=== PATIENT | female | born 1995 | race Caucasian/White ===

== ENCOUNTER → 2017-10-18 10:22 | Outpatient (CLI) | payer BC, SELFPAY ==
[2017-10-22 10:18] LABS: V-Zoster IgG (Immunity) 523 index (Immune >165); V-Zoster Virus Acute IgM < 0.91 index (0.00-0.90)
== END ==
DX: L30.9 Dermatitis, unspecified (principal)
CPT/HCPCS: 36415; 86787

== ENCOUNTER 2018-03-14 16:40 | Inpatient (IN) | payer BC, SELFPAY ==
[2018-03-14 17:12] VITALS: BMI 31.3
[2018-03-14] MEDS: Lactated Ringers 1,000 ML 50 ML IV (17:45)
[2018-03-14 17:54] LABS: Hematocrit 33.2 % (37-47); Hemoglobin 11.1 g/dl (12.0-15.0); Mean Corp Hgb Conc 33.4 g/gl (32-36); Mean Corpuscular Hgb 31.2 pg (27.0-32.0); Mean Corpuscular Volume 93.3 fL (81-99); Mean Platelet Vol. 10.3 fl (6.2-12.0); Platelet Count 235 K/mm3 (150-450); RBC Distribution Width CV 13.4 % (11.6-14.6); Red Blood Count 3.56 M/mm3 (4.2-5.4); White Blood Count 10.1 K/mm3 (4.4-11.0)
[2018-03-14 18:22] LABS: Scan Indicated on CBC? Y/N NO
[2018-03-14] MEDS: miSOPROStol 25 MCG TABLET VAGINAL (18:25)
[2018-03-14] MEDS: 0.9% Normal Saline 100 ML IV.SOLN. INTRA-UTER (21:03)
--- NOTE | 2018-03-14 21:11 | PCM.HP.OB ---
History Date of Admission: 03/14/18 Final STEPHANIE: 03/22/18 Gestational age: 38 Weeks and 6 Days History of this : This is a 22 year-old, 2 para 0010 at 38-6/7 weeks for cervical ripening for 39-week induction tomorrow due to polyhydramnios. Patient has been diagnosed with polyhydramnios that is idiopathic in nature. Estimated weight is 86 percentile. Amniotic fluid volume at last check was 28 cm. She denies any vaginal bleeding or leaking of fluid. She has had good movement. She has had some irregular contractions and back pain. Allergies No Known Allergies Allergy (Unverified 03/14/18 17:14) Home Medications: Home Medications Ferrous Sulfate [Slow Fe] 142 mg PO DAILY 03/14/18 Vits [Prenatabs FA] 1 tablet PO DAILY 03/14/18 Smoking Status: Never smoker Alcohol: None Number of Fetus(es): 1 Heart Tracing: normal baseline, moderate variability, some accelerations. No repetitive decelerations. TOCO Analysis: Contractions every 3-4 min History Past Pregnancies: Past Pregnancies Delivery Date Name GA/Weeks Outcome Route Weight Infant Gender Labor Length Anesthesia Delivery Location Provider FOB Expected Infant Delivery Method: Spontaneous Vaginal Review of Systems Constitutional: Denies: Chills, Fever Cardiovascular: Denies: Chest Pain Respiratory: Denies: Cough, Shortness of Breath Skin: Denies: Rash Physical Exam General: Alert, Cooperative, No apparent distress Cardiovascular: Regular rate Lungs: Normal air movement Abdomen: Soft, Non-Distended, Gravid, - - large for gest age abdomen c/w polyhydramios Extremities:: Other - 1+ edema FRAME FIXER: Normal external genitalia Estimated gestational size: Large for gestational age Presentation: Cephalic Cervix Dilation (cm): 1 Assessment/Plan This is a 22 year-old, 2 para 0010 at 38-6/7 weeks for cervical ripening for polyhydramnios induction of labor at 39 weeks. Benefits and alternatives to induction been discussed with patient her questions were answered to her satisfaction she desires to proceed. Had 1 dose of Cytotec and cervix is now dilated to 1 cm. We will proceed with Pitocin and Thurman ripening. Estimated weight is less than 5000 g by ultrasound and clinically and pelvis is clinically adequate to expect vaginal delivery. Patient may have epidural, Nubain or nitrous as needed. May have Dilaudid until in active labor. Initiate group B strep prophylaxis when she is in active labor. Procedure note: Thurman catheter was placed over the stylette into the cervical loss in the usual sterile fashion. The balloon was inflated to 30 cc and placement over the internal loss was confirmed. Patient tolerated the procedure well.
[2018-03-15] MEDS: 0.9% Saline Lock 10 ML Syringe IV ×3 (00:35→16:37)
[2018-03-15] MEDS: Oxytocin 30 units/NS 500 ml 30 UNITS/500 ML IV.SOLN IV (01:52)
[2018-03-15] MEDS: Lactated Ringers 1,000 ML 50 ML IV ×3 (03:11→12:54)
[2018-03-15] MEDS: fentaNYL-bupivacaine (epidural) 100 ML BAG EPIDURAL ×3 (03:25→12:55)
--- NOTE | 2018-03-15 10:12 | PCM.PN.BLA ---
Progress Note Pain well controlled w/ epidural FHTs- normal baseline, moderate variability, no recurrent decelerations, occas. accels tocos- ctxs q2-4 min cervix 6/100/-2, AROM w/ return of large amount of clear fluid cont. expectant management for vaginal delivery
[2018-03-15] MEDS: Oxytocin 30 units/NS 500 ml 30 UNITS/500 ML IV.SOLN 334 UNITS IV (13:50)
--- NOTE | 2018-03-15 14:11 | PCM.OB.VAG ---
Vaginal Delivery Maternal Presentation: Medically Indicated Induction Method of Induction: Pitocin, Thurman Bulb, Amniotomy, Cytotec Medical Reason for Induction: - - Polyhydramnios Amniotic Membrane Rupture Type: Artificial Amniotic Fluid Description: Clear - converted to light MSF at delivery Final STEPHANIE: 03/22/18 Final STEPHANIE Source: US <20 weeks Gestational age: 39 Weeks and 0 Days Date of Procedure: 03/15/18 Pre-Operative Diagnosis: polyhydramnios, labor Post-Operative Diagnosis: same Surgery/ Procedure Performed: Spontaneous Vaginal Delivery Type of Anesthesia: Epidural Description of Procedure: A vigorous female was delivered PAUL over a small second-degree perineal laceration. The remainder the infant was delivered with maternal pushing and gentle traction only in less than 15 seconds. The Pitocin infusion was initiated for active management of the third stage. The cord was clamped and cut after 1 minute. The was attended to by the waiting nursing staff. The placenta was delivered spontaneously and intact. The cervix and vagina were intact. The second-degree perineal laceration was repaired with 3-0 Vicryl suture in a running standard fashion. Sponge and needle counts were correct. A vaginal sweep was completed by me. Presentation: PAUL Placental Delivery Description: Spontaneous Placenta Disposition: [facility] Cord Vessel Description: 3 Vessels Cord Entanglement: None Drain: Thurman to straight drain Estimated Blood Loss: 350 A gender: Female (1 minute): 3 (5 minute): 9 Episiotomy Description: None Laceration: 2nd degree - perineal Medications given after delivery: IV Pitocin Complications: None
[2018-03-15] MEDS: Oxytocin 30 units/NS 500 ml 30 UNITS/500 ML IV.SOLN 167 UNITS IV (14:20)
[2018-03-15 21:00] VITALS: BP 119/62; PULSE 100; RESP 16; TEMP 36.3
[2018-03-16 00:30] VITALS: BP 102/52; PULSE 83; RESP 16; TEMP 36.2
[2018-03-16 06:00] VITALS: BP 105/55; PULSE 96; RESP 16; TEMP 36
[2018-03-16] MEDS: Senna/Docusate Sodium 1 Tablet PO (07:43)
[2018-03-16 08:00] VITALS: BP 102/54; PULSE 89; RESP 16; TEMP 36.1; O2SAT 98
[2018-03-16 11:55] VITALS: BP 101/57; PULSE 96; RESP 18; TEMP 36.3; O2SAT 98
[2018-03-16 15:50] VITALS: BP 107/56; PULSE 97; RESP 14; TEMP 36.4; O2SAT 98
[2018-03-16 21:00] VITALS: BP 113/58; PULSE 95; RESP 16; TEMP 36.1
[2018-03-17 01:45] VITALS: BP 104/59; PULSE 78; RESP 16; TEMP 36
--- NOTE | 2018-03-17 08:16 | DCINST_ITS ---
Discharge Diet: No Restrictions Discharge Activity: Return to Normal Activity, May not drive while taking narcotic pain medications., May Shower May resume sexual activity in: 4-6 weeks Additional Activity Instructions:: Nothing in the vagina for 4-6 weeks. You may return to work/school in 6 weeks. Call your doctor if your incision/area has: Continuous Slow Oozing, Sudden Increased Bleeding, Increased Pain/ Swelling, Increased Redness, Foul Smelling Discharge Additional Instructions: If you experience any of the following, contact your healthcare provider. * Bleeding that soaks a pad every hour for 2 hours * Fever 100.4 or higher * Unrelieved incision or abdominal pain * Swelling, redness, discharge or bleeding from your incision or episiotomy site * Your incision begins to separate * Problems urinating (including inability to urinate or burning while urinating). * Visual changes * Severe headache * Flu-like symptoms * Pain or redness in one of both of your breasts * Pain, warmth, tenderness or swelling in your legs, especially the calf area * Frequent nausea and vomiting * Symptoms of depression or anxiety If you experience any of the following, call 911 or go to the nearest Emergency Room. * Chest pain * Problems breathing * Seizure activity * Partial or complete paralysis of a body part, slurred speech, weakness or drooping of the face, or a sudden inability to walk or hold your balance Allergies/Adverse Reactions: Allergies No Known Allergies Allergy (Unverified 03/14/18 17:14) Medications to take at Discharge Ferrous Sulfate [Slow Fe] 142 mg PO DAILY 03/14/18 Vits [Prenatabs FA ] 1 tablet PO DAILY 03/14/18 Ibuprofen [Motrin] 800 mg PO TID PRN PRN #60 tablet 03/17/18 The following prescriptions were given: Ibuprofen [Motrin] 800 mg PO TID PRN PRN #60 tablet PRN Reason: Pain Please Follow Up With: Marta Mccray MD - [phone] When: Call to make an appointment with your provider's office in 1-2 and 6 weeks. Primary Care Physician: Care Physician,No Primary [Primary Care Provider] - Test Results: Test results from this visit will be discussed in further detail at your follow- up appointment, if applicable.
--- NOTE | 2018-03-17 08:27 | PCM.PN.OB ---
Subjective: pain well controlled, average lochia. Sore nipples. Note- did well yesterday, I rounded but note entered on wrong patient yesterday - Physical Exam General: Alert, Cooperative, No apparent distress Vital Signs Temp Pulse Resp BP Pulse Ox 96.8 F L 78 16 104/59 L 98 03/17/18 01:45 03/17/18 01:45 03/17/18 01:45 03/17/18 01:45 03/16/18 15:50 Oxygen Delivery Method Room Air Weight: 77.6 kg Body Mass Index (BMI) 31.3 Intake and Output for Last 24 Hours 03/15/18 03/16/18 03/17/18 23:59 23:59 23:59 Intake Total 5 / 5 Output Total 1075 / 1075 Balance 1000 / 1000 Medical Necessity - Tobacco Use Smoking Status: Never smoker Assessment/Plan PPD#2 doing well ready for d/c yesterday was doing well and had routine care, was working on
[2018-03-17 08:29] VITALS: BP 116/55; PULSE 71; RESP 16; TEMP 35.6; O2SAT 99
[2018-03-17 12:06] VITALS: BP 99/61; PULSE 78; RESP 16; TEMP 35.8; O2SAT 98
== END 2018-03-17 12:30 | disposition home or self-care (01) | DRG 807 ==
PROVIDERS: Admitting Provider Obstetrics & Gynecology; Referring Provider Obstetrics & Gynecology; Visit Provider Obstetrics & Gynecology
DX: O40.3XX0 Polyhydramnios, third trimester, not applicable or unspecified (principal); O36.63X0 Maternal care for excessive fetal growth, third trimester, not applicable or unspecified; O77.0 Labor and delivery complicated by meconium in amniotic fluid; O70.1 Second degree perineal laceration during delivery; Z3A.39 39 weeks gestation of pregnancy; Z37.0 Single live birth
CPT/HCPCS: 59025; 59050; 85027; 86850; 86900; 99218; J7120; A4216; G0378

== ENCOUNTER → 2018-10-14 10:28 | Outpatient (CLI) | payer BC, SELFPAY ==
[2018-10-14 09:47] VITALS: BMI 31.3
[2018-10-14 10:59] LABS: Absolute Lymphocyte Count 1.11 X10^3/uL (0.83-4.51); Absolute Neutrophil Count 6.1 X10^3/uL (2.0-7.7); Basophil# 0.02 X10^3/uL; Basophil% 0.3 % (0-1); Hemoglobin 13.9 g/dL (12.0-15.0); Lymphocyte # 1.11 X10^3/ul (4.0); Lymphocyte % 14.5 % (19-41); Mean Corp Hgb Conc 34.8 g/dL (32-36); Mean Corpuscular Volume 89.1 fL (81-99); Mean Platelet Vol. 9.6 fl (6.2-12.0); Monocyte# 0.35 X10^3/uL; Monocyte% 4.6 % (0-10); NRBC Flagged by Analyzer 0 % (0-5); Neutrophil # 6.13 X10^3/uL (2.7-7.7); Neutrophil % 79.9 % (47-70); Platelet Count 273 K/mm3 (150-450); RBC Distribution Width CV 12.2 % (11.6-14.6); RBC Distribution Width SD 40.2 fl (35.1-43.9); Red Blood Count 4.49 M/mm3 (4.2-5.4); White Blood Count 7.7 K/mm3 (4.4-11.0)
[2018-10-14 12:05] LABS: HIV - WCH Non-Reactive (Nonreactive); Hepatitis B Surface Antigen Non-Reactive (Nonreactive); Rubella IgG 99.1 IU/mL
[2018-10-14 14:52] LABS: Chlamydia Trachomatis by PCR Negative (Negative); Neisserai gonorrhoeae by PCR Negative (Negative); Probe Check PASS; Sample Adequacy Control PASS; Specimen Processing Control PASS
[2018-10-17 01:38] LABS: Rapid Plasmin Reagin (RPR) NONREACTIVE (NONREACTIVE)
[2018-10-17 12:20] LABS: HPV Reflexed? NOT INDICATED
== END ==
PROVIDERS: Referring Provider Obstetrics & Gynecology; Visit Provider Obstetrics & Gynecology
DX: Z34.90 Encounter for supervision of normal pregnancy, unspecified, unspecified trimester (principal); Z12.4 Encounter for screening for malignant neoplasm of cervix
CPT/HCPCS: 36415; 85025; 86592; 86703; 86762; 86850; 86900; 86901; 87086; 87088; 87340; 87491; 87591; 87624; 88175; G0145

== ENCOUNTER → 2019-02-17 16:01 | Outpatient (CLI) | payer BC, SELFPAY ==
[2019-02-17 15:29] VITALS: BMI 31.3
[2019-02-17 17:37] LABS: Absolute Neutrophil Count 7.4 X10^3/uL (2.0-7.7); Basophil# 0.03 X10^3/uL; Basophil% 0.3 % (0-1); Eosinophil# 0.04 X10^3/uL; Eosinophils% 0.4 % (0-5); Hematocrit 33.9 % (37-47); Hemoglobin 11.3 g/dL (12.0-15.0); Mean Corp Hgb Conc 33.3 g/dL (32-36); Mean Corpuscular Hgb 31.9 pg (27.0-32.0); Mean Corpuscular Volume 95.8 fL (81-99); Mean Platelet Vol. 10.1 fl (6.2-12.0); Monocyte# 0.45 X10^3/uL; Monocyte% 4.8 % (0-10); NRBC Flagged by Analyzer 0 % (0-5); Neutrophil # 7.36 X10^3/uL (2.7-7.7); Neutrophil % 78.9 % (47-70); Platelet Count 198 K/mm3 (150-450); RBC Distribution Width CV 12.6 % (11.6-14.6); RBC Distribution Width SD 44.4 fl (35.1-43.9); Red Blood Count 3.54 M/mm3 (4.2-5.4); White Blood Count 9.3 K/mm3 (4.4-11.0)
[2019-02-17 18:01] LABS: Glucose Challenge Gest 1H 50g 140 mg/dL (70-140)
== END ==
PROVIDERS: Referring Provider Obstetrics & Gynecology; Visit Provider Obstetrics & Gynecology
DX: Z34.92 Encounter for supervision of normal pregnancy, unspecified, second trimester (principal)
CPT/HCPCS: 36415; 82950; 85025

== ENCOUNTER → 2019-03-24 07:19 | Outpatient (CLI) | payer BC, SELFPAY ==
[2019-03-06 15:03] VITALS: BMI 31.3
[2019-03-24 08:17] LABS: Glucose GTT-Gestation. Fasting 88 mg/dL (<105)
[2019-03-24 09:13] LABS: Glucose GTT-Gestational 1 Hr 123 mg/dL (<190)
[2019-03-24 10:38] LABS: Glucose GTT-Gestational 2 Hr 88 mg/dL (<165)
[2019-03-24 11:26] LABS: Glucose GTT-Gestational 3 Hr 74 L (<145)
== END ==
PROVIDERS: Referring Provider Nurse Practitioner Women's Health; Visit Provider Nurse Practitioner Women's Health
DX: O99.810 Abnormal glucose complicating pregnancy (principal); Z3A.00 Weeks of gestation of pregnancy not specified
CPT/HCPCS: 36415; 82951; 82952

== ENCOUNTER → 2019-04-16 | Outpatient (CLI) | payer BC, SELFPAY ==
[2019-04-16 15:51] VITALS: BMI 31.3
== END | disposition home or self-care (01) ==
LOC: LABSPEC 17:02
PROVIDERS: Referring Provider Obstetrics & Gynecology; Visit Provider Obstetrics & Gynecology
DX: Z34.80 Encounter for supervision of other normal pregnancy, unspecified trimester (principal)
CPT/HCPCS: 87081

== ENCOUNTER → 2019-05-12 11:48 | Outpatient (CLI) | payer BC, SELFPAY ==
[2019-05-06 11:24] VITALS: BMI 31.3
--- NOTE | 2019-05-12 11:56 | US_ITS ---
STUDY: SECOND AND THIRD TRIMESTER OBSTETRICAL ULTRASOUND - LIMITED REASON FOR EXAM: Female, 23 years old WELL BEING LMP: August 11, 2018. PRIOR ULTRASOUND: None. TECHNIQUE: Transabdominal TECHNICAL QUALITY: Adequate. FINDINGS: There is a single intrauterine fetus. The fetus is in a cephalic presentation. There is demonstrated cardiac activity with a heart rate of 156 bpm. There is a normal amniotic fluid volume. The largest amniotic fluid pocket measures 11 cm. The amniotic fluid index (MANDI) is 30.5 cm. There is evidence of polyhydramnios. The placenta is fundal in location. There are Grade 1 placental changes. The cervix was not well seen due to the head positioning. BIOMETRY: BPD: 9.25 cm: 36 weeks, 5 days HC: 33.26 cm: 38 weeks, 0 days AC: 35.14 cm: 39 weeks, 1 days FL: 7.2 cm: 36 weeks, 6 days Age by LMP: 39 weeks, 1 days. STEPHANIE by LMP: May 18, 2019. age by current US: 37 weeks, 5 days. STEPHANIE by current US: May 28, 2019. Estimated weight: 3400 grams, +/- 496 grams, 44 percentile. US/OB Limited With Biometrics IMPRESSION: A single live intrauterine gestation with a mean gestational age of 37 weeks and 5 days. Polyhydramnios. Electronically Signed: Jose Miguel Parsons, at 13:18 EDT , Service support ,
== END ==
PROVIDERS: Referring Provider Obstetrics & Gynecology; Visit Provider Obstetrics & Gynecology
DX: O40.3XX0 Polyhydramnios, third trimester, not applicable or unspecified (principal); Z3A.37 37 weeks gestation of pregnancy
CPT/HCPCS: 76816

== ENCOUNTER 2019-05-18 05:55 | Outpatient (CLI) | payer BC, SELFPAY ==
[2019-05-12 13:49] VITALS: BMI 31.3
[2019-05-18 07:26] VITALS: BMI 31.0
[2019-05-18 07:33] VITALS: PULSE 101; O2SAT 81
[2019-05-18 07:34] VITALS: BP 104/54; TEMP 37.3
[2019-05-18 07:35] VITALS: PULSE 84; O2SAT 97
--- NOTE | 2019-05-18 07:54 | US_ITS ---
STUDY: OBSTETRICAL ULTRASOUND - BIOPHYSICAL PROFILE REASON FOR EXAM: Female, 23 years old WELL BEING LMP: August 11, 2018. PRIOR ULTRASOUND: Comparison is made with prior examination dated May 12, 2019. TECHNIQUE: Transabdominal TECHNICAL QUALITY: Adequate. FINDINGS: There is a single intrauterine fetus. The fetus is in a cephalic presentation. There is demonstrated cardiac activity with a heart rate of 150 bpm. There is a normal amniotic fluid volume. The largest amniotic fluid pocket measures 9.1 cm. The amniotic fluid index (MANDI) is 27.2 cm. There is evidence of polyhydramnios. The placenta is posterior in location and is not low lying. There are Grade 2 placental changes. Age by LMP: 40 weeks, 0 days. STEPHANIE by LMP: May 18, 2019. BIOPHYSICAL PROFILE: Breathing Movements (FBM): 2 Gross Body Movements (GBM): 2 Tone (FT): 2 Amniotic Fluid Volume (AFV): 2 TOTAL SCORE: 8 / 8 US/Biophysical Profile IMPRESSION: Normal biophysical profile of 88. Electronically Signed: Jose Miguel Parsons, at 10:23 EDT , Service support ,
--- NOTE | 2019-05-20 12:57 | OB.TRI.PN_ITS ---
Progress Notes Date of Service: 05/18/19 Progress Note: FHT: 130 Moderate variability reactive no decelerations category I tracing [place]: irregular Contractions nst secondary to polyhydramnios Multi Select Codes - Urinary/Genital Urinary/Genital CPT Codes: 67092-93 non-stress test Interp
--- NOTE | 2019-05-20 12:57 | OB.TRI.PN ---
Progress Notes Date of Service: 05/18/19 Progress Note: FHT: 130 Moderate variability reactive no decelerations category I tracing [place]: irregular Contractions nst secondary to polyhydramnios Multi Select Codes - Urinary/Genital Urinary/Genital CPT Codes: 09888-16 non-stress test Interp
== END 2019-05-18 10:15 | disposition home or self-care (01) ==
LOC: WPOUT 07:05 → WP 07:06
PROVIDERS: Referring Provider Obstetrics & Gynecology; Visit Provider Obstetrics & Gynecology
DX: O40.3XX0 Polyhydramnios, third trimester, not applicable or unspecified (principal); Z3A.40 40 weeks gestation of pregnancy
CPT/HCPCS: 59050; 76818; 99218; G0378

== ENCOUNTER 2019-05-20 07:00 | Inpatient (IN) | payer BC, SELFPAY ==
[2019-05-12 13:49] VITALS: BMI 31.3
[2019-05-20] VITALS (61 sets, daily range): BP systolic 80–132; BP diastolic 45–78; PULSE 73–163; TEMP 36.6–37.6; O2SAT 83–100; BMI 30.7
[2019-05-20] MEDS: Lactated Ringers 1,000 ML 50 ML IV (07:40)
[2019-05-20 07:52] LABS: Absolute Lymphocyte Count 1.25 X10^3/uL (0.83-4.51); Absolute Neutrophil Count 5.5 X10^3/uL (2.0-7.7); Basophil# 0.02 X10^3/uL; Basophil% 0.3 % (0-1); Eosinophil# 0.04 X10^3/uL; Eosinophils% 0.5 % (0-5); Hematocrit 33.5 % (37-47); Hemoglobin 11.3 g/dL (12.0-15.0); Lymphocyte # 1.25 X10^3/ul (4.0); Mean Corp Hgb Conc 33.7 g/dL (32-36); Mean Corpuscular Hgb 31.7 pg (27.0-32.0); Mean Corpuscular Volume 94.1 fL (81-99); Mean Platelet Vol. 9.9 fl (6.2-12.0); Monocyte# 0.47 X10^3/uL; Monocyte% 6.4 % (0-10); NRBC Flagged by Analyzer 0 % (0-5); Neutrophil % 74.7 % (47-70); Platelet Count 169 K/mm3 (150-450); RBC Distribution Width SD 44.8 fl (35.1-43.9); Red Blood Count 3.56 M/mm3 (4.2-5.4); White Blood Count 7.4 K/mm3 (4.4-11.0)
[2019-05-20] MEDS: miSOPROStol 25 MCG TABLET VAGINAL (08:10)
--- NOTE | 2019-05-20 08:45 | NURSING ---
pt lactose intolerant
--- NOTE | 2019-05-20 12:55 | HP.PCM_ITS ---
- Problem List (1) Abnormal glucose affecting Status: Acute Comment: 3 hr GTT normal (2) Family history of congenital heart defect Status: Acute Comment: dtr with ASD, patient declines echo and nt screening. (3) Large for gestational age fetus Status: Acute Comment: prev polyhydramnios. check growth scan (4) Polyhydramnios affecting Status: Acute Comment: weekly NST at 32 wk, growth US Q4 weeks (5) Status: Acute Qualifiers: Comment: Declines carrier, genetic and NTD reviewed us (6) Short interval between pregnancies complicating , antepartum Status: Acute Comment: 03/2018 (7) Supervision of other normal Status: Acute Comment: PRR STEPHANIE 05/18/19 boy Krishan PC Arina Spouse Jorge (8) Umbilical cord, marginal insertion Status: Acute Comment: 1cm from upper edge. repeat growth at 28-32 weeks History and Physical Date of Admission: 05/20/19 Intake Vital Signs 05/12/19 BMI 31.3 05/12/19 Height 5 ft 4 in 05/12/19 Weight: 169 lb 05/12/19 BMI 29.0 05/12/19 BP 108/70 Intake Visit Reasons: OB VISIT - PER SM Chief Complaint: est ob Stage Set Designer Required: No Is patient in pain?: No Allergies No Known Allergies Allergy (Verified 05/12/19 13:46) Medications Vits [Prenatabs FA ] 1 tab PO DAILY 03/14/18 [History Confirmed 05/12/19] Last Menstral Period: 08/11/18 Zika: Zika virus screening: Negative : No PFSH PFSH Medical History Supervision of other normal (Acute) Short interval between pregnancies complicating , antepartum (Acute) (Acute) Heart murmur (Acute) Surgical History No significant past surgical history (Acute) Social History (Updated 05/12/19 @ 14:[address] Kami Calderon MD) adopted: No household members: family housing: house number of children: 1 current occupational status: employed current occupation: [employer] current occupational exposures/hazards: No pets and animals: Yes history of recent travel: No sexually active: Yes Smoking Status: Never smoker second hand exposure: No alcohol intake: current Alcohol type: wine substance use type: does not use seatbelt use: always do you feel safe at home: Yes additional social history: Spouse: Jorge- director of [employer] Pregancy History 3 Elective abortions Hx Para 1 Spontaneous abortions 1 Hx # Term Pregnancies Ectopic pregnancies Hx # Pregnancies Multiple births # of living children 1 Past Pregnancies Del. Date Name GA/Weeks Outcome Route Bth Weight Infant Gen Labor Lgth Anesthesia Del Locatn Provider FOB 03/15/18 Arina 39 live - full term 7.9 Female [address] [facility] Dr[address] Mahendra Patel Delivery Date: 03/15/18 On 10/14/18 @ 09:[address] IoL d/t poly; HPI OB VISIT - PER SM: Details: JOVAN LANCASTER is a 23 year old who presents for routine OB visit. OB Visit STEPHANIE Calculator Estimated Delivery Date Method Current WG Current Estimate 05/18/19 LMP (Certain) 39w 1d Expected Delivery Route/Plan Labor Preferences- labor support person: Bentley pain management options preferred: epidural cut cord/dad catch: cord : maybe PP control planned: condoms discussed possible routes of delivery and associated risks: [] special requests: [] Specific Issue/Plans flu vaccine: given tdap vaccine: given rhogam: na LARC form signed: yes movement and labor precautions reviewed. Problem list reviewed and updated with the most current plan of care details and appropriate orders placed. Relevant counseling for the gestational age provided. Continue routine care and follow up unless otherwise noted in visit notes/problem list details Initial Weight: 133 lb Date EGA Weight BP Urine Prot Glucose FHR FuHt Pres Dilation Effaced St Visit Note 11/11/18 13w 1d 134 lb (+16 oz) 136/64 Negative Negative 155 no vb cramping 12/15/18 18w 0d 137 lb 4 oz (+4 lb 4 oz) 104/66 Negative Negative 143 No VB, LOF. Doing well 01/22/19 23w 3d 144 lb (+11 lb) 114/70 Negative Negative 145 no vb lof good fm struggling with anxiety. discussed placental finding - not oerly abnormal just recommend growt us in third trimester 02/17/19 27w 1d 148 lb (+15 lb) 124/76 Negative Negative 155 28 no vb lof good fm no reg ctx cbc gct, tdap next visit 03/06/19 29w 4d 154 lb 4 oz (+21 lb 4 oz) 119/71 Negative Negative 151 30 Good FM. No Vb, lof. Tdap given. 3hr GTT and repeat US ordered. 03/26/19 32w 3d 156 lb (+23 lb) Trace Negative 135 32 Breech SM- no vb lof good fm no regular ctx 04/03/19 33w 4d 158 lb 2 oz (+25 lb 2 oz) 121/75 Negative Negative 135 36 Breech SM- no vb lof good fm no reg ctx check growth scan due to measuring ahead and history of polyhydramnios with first 04/15/19 35w 2d 161 lb 2 oz (+28 lb 2 oz) 115/77 Negative Negative 141 37 Cephalic MH-no VB, LOF. Good FM. Told at [facility] US on 04/10 polyhydramnios. Will get report and call patient after discussing with ALEXANDREA. 04/16/19 35w 3d 161 lb (+28 lb) 108/68 Negative Negative 140 discussed delivery by 39-40 04/22/19 36w 2d 161 lb (+28 lb) 140 Cephalic no vb lof good fm no regular ctx 05/01/19 37w 4d 165 lb (+32 lb) 120/62 Negative Negative 140 Cephalic 1 0 -4 SM- no vb lof good fm no regular ctx 05/06/19 38w 2d 167 lb 2 oz (+34 lb 2 oz) 119/72 Negative Negative 140 SM- no vb lof good fm no reular ctx discussed growth scan and plan IOL 39-40 weeks 05/12/19 39w 1d 169 lb (+36 lb) 108/70 Negative Negative 140 Cephalic 1 0 SM- US done and reassuring. no vb lo f good fm no regular ctx. Notes Visit Date: 05/12/19 ??No visit notes to display Visit Date: 05/06/19 ??No visit notes to display Visit Date: 05/01/19 ??No visit notes to display Visit Date: 04/22/19 ??No visit notes to display Visit Date: 04/16/19 ??No visit notes to display Visit Date: 04/15/19 ??No visit notes to display Visit Date: 04/03/19 ??No visit notes to display Visit Date: 03/26/19 ??No visit notes to display Visit Date: 03/06/19 ??No visit notes to display Visit Date: 02/17/19 ??No visit notes to display Visit Date: 01/22/19 ??no vb lof good fm struggling with anxiety. discussed placental finding - not oerly abnormal just recommend growt us in third trimester ??Kami Calderon MD on 01/22/19 Visit Date: 12/15/18 ??No VB, LOF. Doing well ??Luz Mayfield NP-C on 12/15/18 Visit Date: 11/11/18 ??no vb cramping ??Kami Calderon MD on 11/11/18 [facility] First Trimester First Trimester: Desire for , Alcohol, Tobacco Cessation, Illicit/Recreational Drug/Substance Use, Intimate Partner Violence, Barriers to care, Unstable Housing, Communication Barriers, Environmental/Work Hazards, Anticipated Course of Care, Toxoplasmosis Precations, Use of Any medications, Sexual activity, Exercise, Dental Care, Sauna/Hot tub use, Seat Belt use, Childbirth classes/Hospital facilities, , Travel, Indications for US and Screening for Aneuploidy Second Trimester Second Trimester: Signs and Symptoms of Labor, Selecting a care provider, Reproductive Life Planning, Care Planning, Tobacco Cessation, Depression/Anxiety and Intimate Partner Violence Third Trimester Third Trimester: Pain Management Plans, Labor support person(s), Immediate Larc, Movement Monitoring and Infant Feeding Yes ; discussed Trial of Labor after Counseling or discussed Circumcision preference Diagnostics Diagnostics Diagnostics Gest Glucose Tolerance MG/DL 03/24/19 Glucose 1 Hr 50 gm 140 mg/dL (70-140) 02/17/19 Hgb 11.3 g/dL (12.0-15.0) L 02/17/19 Hct 33.9 % (37-47) L 02/17/19 Details: HIV: Urine Culture: Sequential Screen: NIPT Screen: ROS Const Reports system reviewed and no additional complaints, except as docu Card Reports system reviewed and no additional complaints, except as docu Resp Reports system reviewed and no additional complaints, except as docu GI Reports system reviewed and no additional complaints, except as docu, Reports nausea Reports system reviewed and no additional complaints, except as docu Musc Reports system reviewed and no additional complaints, except as docu Exam Const General: cooperative, healthy appearing, comfortable, anxious HENMT Head: normal to inspection Nose: external nose normal Face and sinus: normal facial exam Neck Neck: normal visual inspection, full ROM, no lymphadenopathy Thyroid: thyroid normal Chest Chest palpation & inspection: normal inspection of the chest Resp Effort & Inspection: normal respiratory effort GI Inspection: normal to inspection Palpation: soft, other (gravid uterus) Other: infant vertex and appropriate size for gestational age Other: Cervical Exam: Extrem General: pedal edema Results POC Urinalysis 2 Dip (Clinic) Office Urine Glucose Negative Last Edit by Jaqueline Ascencio on 05/12/19 13:5 2 Office Urine Protein Negative Last Edit by Jaqueline Ascencio on 05/12/19 13:5 2 Assessment & Plan Problems 1. Polyhydramnios affecting O40.9XX0 2. Large for gestational age fetus 3. Abnormal glucose affecting O99.810 4. Umbilical cord, marginal insertion 5. Family history of congenital heart defect Z82.79 6. Supervision of other normal Z34.80 7. 39 weeks gestation of Z3A.39 8. Short interval between pregnancies complicating , antepartum O09.899 Patient presents IOL, plan management for , pitocin/AROM when able. cytotec first then flores bulb. Pain management: plans epidural. GBS negative. Management of any complications: polyhydramnios I have reviewed the [facility] and made any clinically relevant updates. Orders Orders: POC Urinalysis 2 Dip (Clinic) Today Coding Level of Care Code OB Routine Diagnoses Polyhydramnios affecting O40.9XX0 Large for gestational age fetus Abnormal glucose affecting O99.810 Umbilical cord, marginal insertion Family history of congenital heart defect Z82.79 Supervision of other normal Z34.80 39 weeks gestation of Z3A.39 ??Weeks of gestation: 39 weeks Short interval between pregnancies complicating , antepartum O09.899
[2019-05-20] MEDS: Lactated Ringers 1,000 ML 200 ML IV ×2 (12:56→20:14)
[2019-05-20] MEDS: 0.9% Normal Saline Single 100 ML IV.SOLN. IY (12:57)
[2019-05-20] MEDS: Lactated Ringers 500 ML 999 ML IV ×4 (14:28→20:45)
[2019-05-20] MEDS: fentaNYL-bupivacaine (epidural) 100 ML BAG EPIDURAL ×2 (16:03→20:14)
[2019-05-20] MEDS: Ondansetron 4 MG/2 ML Vial IV ×2 (17:25→21:51)
[2019-05-20] MEDS: 0.9% Saline Lock 10 ML Syringe IV (21:52)
[2019-05-20] MEDS: Oxytocin 30 units/NS 500 ml 30 UNITS/500 ML IV.SOLN IV (22:14)
[2019-05-20] MEDS: Oxytocin 30 units/NS 500 ml 30 UNITS/500 ML IV.SOLN 334 UNITS IV (23:23)
--- NOTE | 2019-05-20 23:30 | PCM.OPRPT ---
Problem List (1) Abnormal glucose affecting Status: Acute Comment: 3 hr GTT normal (2) Family history of congenital heart defect Status: Acute Comment: dtr with ASD, patient declines echo and nt screening. (3) Large for gestational age fetus Status: Acute Comment: prev polyhydramnios. check growth scan (4) Polyhydramnios affecting Status: Acute Comment: weekly NST at 32 wk, growth US Q4 weeks (5) Status: Acute Qualifiers: Comment: Declines carrier, genetic and NTD reviewed us (6) Short interval between pregnancies complicating , antepartum Status: Acute Comment: 03/2018 (7) Supervision of other normal Status: Acute Comment: PRR STEPHANIE 05/18/19 boy Krishan [place] Spouse Jorge (8) Umbilical cord, marginal insertion Status: Acute Comment: 1cm from upper edge. repeat growth at 28-32 weeks Vaginal Delivery Maternal Presentation: Medically Indicated Induction iol polyhydramnios Method of Induction: Pitocin, Cytotec Amniotic Membrane Rupture Type: Artificial Amniotic Fluid Description: Clear Final STEPHANIE: 05/18/19 Gestational age: 40 Weeks and 2 Days Date of Procedure: 05/20/19 Pre-Operative Diagnosis: iol postdates polyhydramnios Post-Operative Diagnosis: same Surgery/ Procedure Performed: Spontaneous Vaginal Delivery Type of Anesthesia: Epidural Description of Procedure: Patient began pushing and delivered the head in the PAUL presentation. The head was delivered atraumatically . The anterior and posterior shoulders delivered without complication followed by the rest of the infant and the infant was placed on the maternal abdomen. Delayed cord clamping was employed for approximately 60 seconds. Cord was clamped and cut and gentle traction was applied to the cord and the placenta delivered spontaneously immediately following it was noted to be intact with three-vessel cord. The perineum and vagina were inspected and noted to have no laceration. EBL was 200 cc. Patient and tolerated delivery well. Presentation: PAUL Placental Delivery Description: Spontaneous Placenta Disposition: [facility] Cord Vessel Description: 3 Vessels Cord Entanglement: None Estimated Blood Loss: 200 A gender: Male Episiotomy Description: None Laceration: None Medications given after delivery: IV Pitocin Complications: None Multi Select Codes - Urinary/Genital Urinary/Genital CPT Codes: 05817 Vaginal Delivery [facility]
[2019-05-21] VITALS (19 sets, daily range): BP systolic 92–102; BP diastolic 43–56; PULSE 69–87; RESP 14–16; TEMP 36.1–36.9; O2SAT 95–100
--- NOTE | 2019-05-21 02:15 | NURSING ---
Pump set up for pt, encouraged pt to pump q3hrs.
--- NOTE | 2019-05-21 03:50 | NURSING ---
Report given to Flory STROUD, taking over pt and infant care at this time.
--- NOTE | 2019-05-21 08:07 | PCM.PN.OB ---
Subjective: Doing well, no complaints.Pain controlled. Denies CP, SOB, N,V. Ambulating well, tolerating po. Lochia moderate, bottle feeding going well. - Physical Exam Vitals/I&O's: Vital Signs Temp Pulse Resp BP Pulse Ox 97.7 F L 69 14 101/45 L 95 05/21/19 07:45 05/21/19 07:45 05/21/19 07:45 05/21/19 07:45 05/21/19 04:50 Oxygen Delivery Method Room Air Weight: 167 lb 12.348 oz Body Mass Index (BMI) 30.7 Intake and Output for Last 24 Hours 05/19/19 05/20/19 05/21/19 23:59 23:59 23:59 Intake Total 4699.96 / 4699.96 833 / 833 Output Total 600 / 600 1050 / 1050 Balance 4099.96 / 4099.96 -217 / -217 General: Alert, Oriented x3 Abdomen: Soft, Non Tender, - - FF below U Laboratory Results 05/20/19 07:35: Blood Type AB POSITIVE, Antibody Screen NEGATIVE Current Medications Acetaminophen (Tylenol) 1,000 mg PO Q8H PRN PRN PRN Reason: Pain Score 1-3/10 Bisacodyl (Dulcolax) 10 mg RECTAL UD PRN PRN Reason: If no BM Dibucaine (Dibucaine) 1 applic TOPICAL TID PRN PRN; Protocol PRN Reason: Discomfort Hydrocortisone (Hytone) 1 applic TOPICAL TID PRN PRN; Protocol PRN Reason: Discomfort Ketorolac Tromethamine (Toradol) 10 mg PO Q6H PRN PRN PRN Reason: Pain Score 1-3/10 Stop: 05/26/19 00:21 Methylergonovine Maleate (Methergine) 0.2 mg IM X1 PRN PRN Reason: Excess bleeding/uterine atony Naproxen (Naprosyn) 500 mg PO Q8H PRN PRN PRN Reason: Pain Score 1-3/10 Ondansetron HCl (Zofran) 4 mg IV Q4H PRN PRN PRN Reason: Nausea Oxycodone HCl (Oxyir) 5 - 10 mg PO Q4H PRN PRN PRN Reason: Pain Score 4-10/10 Senna/Docusate Sodium (Senokot-S, Joyce-Colace) 1 - 2 tablet PO DAILY PRN PRN PRN Reason: Constipation Simethicone (Mylicon) 80 mg PO PCHS PRN PRN Reason: Indigestion/Stomach pain Sodium Chloride () 5 - 15 ml IV UD PRN PRN Reason: SALINE FLUSH Medical Necessity - Tobacco Use Smoking Status: Never smoker Assessment/Plan All Active Problems (Last Updated 05/12/19 @ 14:[address] Kami Calderon MD) Polyhydramnios affecting (Acute) Large for gestational age fetus (Acute) Abnormal glucose affecting (Acute) Umbilical cord, marginal insertion (Acute) Family history of congenital heart defect (Acute) Supervision of other normal (Acute) Short interval between pregnancies complicating , antepartum (Acute) (Acute) s/p PPD # 1 1. routine post delivery care 2. bottle feeding- support given 3. rh positive 4. rubella immune
[2019-05-21] MEDS: Naproxen 250 MG Tablet 500 MG PO ×2 (12:02→20:43)
[2019-05-22 02:09] VITALS: BP 96/49; PULSE 68; RESP 16; TEMP 36.6
[2019-05-22] MEDS: Naproxen 250 MG Tablet 500 MG PO (05:49)
[2019-05-22 08:00] VITALS: BP 97/50; PULSE 68; RESP 14; TEMP 36.7
--- NOTE | 2019-05-22 08:54 | PCM.PN.OB ---
Subjective: doing well no complaints pain controlled no CP SOB N V ambulating well tolerating po lochia moderate, bottlefeeding going well - Physical Exam Vitals/I&O's: Vital Signs Temp Pulse Resp BP Pulse Ox 98.1 F 68 14 97/50 L 97 05/22/19 08:00 05/22/19 08:00 05/22/19 08:00 05/22/19 08:00 05/21/19 11:46 Oxygen Delivery Method Room Air Weight: 167 lb 12.348 oz Body Mass Index (BMI) 30.7 Intake and Output for Last 24 Hours 05/20/19 05/21/19 05/22/19 23:59 23:59 23:59 Intake Total 4699.96 / 4699.96 833 / 833 Output Total 600 / 600 1050 / 1050 Balance 4099.96 / 4099.96 -217 / -217 General: Alert, Oriented x3 Current Medications Acetaminophen (Tylenol) 1,000 mg PO Q8H PRN PRN PRN Reason: Pain Score 1-3/10 Bisacodyl (Dulcolax) 10 mg RECTAL UD PRN PRN Reason: If no BM Dibucaine (Dibucaine) 1 applic TOPICAL TID PRN PRN; Protocol PRN Reason: Discomfort Hydrocortisone (Hytone) 1 applic TOPICAL TID PRN PRN; Protocol PRN Reason: Discomfort Ketorolac Tromethamine (Toradol) 10 mg PO Q6H PRN PRN PRN Reason: Pain Score 1-3/10 Stop: 05/26/19 00:21 Methylergonovine Maleate (Methergine) 0.2 mg IM X1 PRN PRN Reason: Excess bleeding/uterine atony Naproxen (Naprosyn) 500 mg PO Q8H PRN PRN PRN Reason: Pain Score 1-3/10 Last Admin: 05/22/19 05:49 Dose: 500 mg Documented by: Ondansetron HCl (Zofran) 4 mg IV Q4H PRN PRN PRN Reason: Nausea Oxycodone HCl (Oxyir) 5 - 10 mg PO Q4H PRN PRN PRN Reason: Pain Score 4-10/10 Senna/Docusate Sodium (Senokot-S, Joyce-Colace) 1 - 2 tablet PO DAILY PRN PRN PRN Reason: Constipation Simethicone (Mylicon) 80 mg PO PCHS PRN PRN Reason: Indigestion/Stomach pain Sodium Chloride () 5 - 15 ml IV UD PRN PRN Reason: SALINE FLUSH Medical Necessity - Tobacco Use Smoking Status: Never smoker Assessment/Plan All Active Problems (Last Updated 05/21/19 @ 10:[address]) Abnormal glucose affecting (Resolved) Family history of congenital heart defect (Resolved) Large for gestational age fetus (Resolved) Polyhydramnios affecting (Resolved) (Resolved) Short interval between pregnancies complicating , antepartum (Resolved) Supervision of other normal (Resolved) Umbilical cord, marginal insertion (Resolved) s/p PPD # 2 1. routine post delivery care 2. bottle feeding- support given 3. rh positive 4. rubella immune
--- NOTE | 2019-05-22 09:34 | DCINST_ITS ---
Discharge Diet: No Restrictions Discharge Activity: Return to Normal Activity, May not drive while taking narcotic pain medications., May Shower May resume sexual activity in: 4-6 weeks Call your doctor if your incision/area has: Continuous Slow Oozing, Sudden Increased Bleeding, Increased Pain/ Swelling, Increased Redness, Foul Smelling Discharge Additional Instructions: If you experience any of the following, contact your healthcare provider. * Bleeding that soaks a pad every hour for 2 hours * Fever 100.4 or higher * Unrelieved incision or abdominal pain * Swelling, redness, discharge or bleeding from your incision or episiotomy site * Your incision begins to separate * Problems urinating (including inability to urinate or burning while urinating). * Visual changes * Severe headache * Flu-like symptoms * Pain or redness in one of both of your breasts * Pain, warmth, tenderness or swelling in your legs, especially the calf area * Frequent nausea and vomiting * Symptoms of depression or anxiety If you experience any of the following, call 911 or go to the nearest Emergency Room. * Chest pain * Problems breathing * Seizure activity * Partial or complete paralysis of a body part, slurred speech, weakness or drooping of the face, or a sudden inability to walk or hold your balance Allergies/Adverse Reactions: Allergies No Known Allergies Allergy (Verified 05/12/19 13:46) Medications to take at Discharge Vits [Prenatabs FA ] 1 tab PO DAILY 03/14/18 Please Follow Up With: Kami Calderon MD - [phone] When: Call to make an appointment with your doctor in 6 weeks. If you had elevated Blood pressure or 4th degree laceration you will need to be seen in 2 weeks. Primary Care Physician: Care Physician,No Primary [Primary Care Provider] - Test Results: Test results from this visit will be discussed in further detail at your follow- up appointment, if applicable.
--- NOTE | 2019-05-22 09:34 | PCM.DCVAG ---
Discharge Diet: No Restrictions Discharge Activity: Return to Normal Activity, May not drive while taking narcotic pain medications., May Shower May resume sexual activity in: 4-6 weeks Call your doctor if your incision/area has: Continuous Slow Oozing, Sudden Increased Bleeding, Increased Pain/ Swelling, Increased Redness, Foul Smelling Discharge Additional Instructions: If you experience any of the following, contact your healthcare provider. Bleeding that soaks a pad every hour for 2 hours Fever 100.4 or higher Unrelieved incision or abdominal pain Swelling, redness, discharge or bleeding from your incision or episiotomy site Your incision begins to separate Problems urinating (including inability to urinate or burning while urinating). Visual changes Severe headache Flu-like symptoms Pain or redness in one of both of your breasts Pain, warmth, tenderness or swelling in your legs, especially the calf area Frequent nausea and vomiting Symptoms of depression or anxiety If you experience any of the following, call 911 or go to the nearest Emergency Room. Chest pain Problems breathing Seizure activity Partial or complete paralysis of a body part, slurred speech, weakness or drooping of the face, or a sudden inability to walk or hold your balance Allergies/Adverse Reactions: Allergies No Known Allergies Allergy (Verified 05/12/19 13:46) Medications to take at Discharge Vits [Prenatabs FA ] 1 tab PO DAILY 03/14/18 Please Follow Up With: Kami Calderon MD - [phone] When: Call to make an appointment with your doctor in 6 weeks. If you had elevated Blood pressure or 4th degree laceration you will need to be seen in 2 weeks. Primary Care Physician: Care Physician,No Primary [Primary Care Provider] - Test Results: Test results from this visit will be discussed in further detail at your follow-up appointment, if applicable.
== END 2019-05-22 10:00 | disposition home or self-care (01) | DRG 807 ==
PROVIDERS: Admitting Provider Obstetrics & Gynecology; Referring Provider Obstetrics & Gynecology; Visit Provider Obstetrics & Gynecology
DX: O40.3XX0 Polyhydramnios, third trimester, not applicable or unspecified (principal); Z37.0 Single live birth; O48.0 Post-term pregnancy; O36.63X0 Maternal care for excessive fetal growth, third trimester, not applicable or unspecified; O69.89X0 Labor and delivery complicated by other cord complications, not applicable or unspecified; O99.814 Abnormal glucose complicating childbirth; Z3A.40 40 weeks gestation of pregnancy
CPT/HCPCS: 59025; 59050; 85025; 86850; 86900; 86901; 99218; J7120; A4216; G0378; J2405

== ENCOUNTER → 2021-08-03 | Outpatient (CLI) | payer OTHER, SELFPAY ==
[2021-08-08 16:29] LABS: HPV Reflexed? NOT INDICATED
== END | disposition home or self-care (01) ==
LOC: LABSPEC 16:51
PROVIDERS: Visit Provider Obstetrics & Gynecology
DX: Z12.4 Encounter for screening for malignant neoplasm of cervix (principal)
CPT/HCPCS: 88175; G0145

== ENCOUNTER → 2023-12-18 | Outpatient (CLI) | payer OTHER, SELFPAY ==
[2023-12-23 17:49] LABS: HPV Reflexed? NOT INDICATED
== END | disposition home or self-care (01) ==
LOC: LABSPEC 09:48
PROVIDERS: Referring Provider Obstetrics & Gynecology; Visit Provider Obstetrics & Gynecology
DX: Z12.4 Encounter for screening for malignant neoplasm of cervix (principal)
CPT/HCPCS: 88175; G0145